=== PATIENT | female | born 1950 | race Caucasian/White ===

== ENCOUNTER 2018-09-29 06:59 | Outpatient (CLI) | payer MEDICARE, OTHER ==
--- NOTE | 2018-09-29 08:39 | ULT ---
HEPATIC SONOGRAM WITH DUPLEX EVALUATION: History: Abdominal liver function tests. FINDINGS: Gallbladder is surgically absent. The common duct is 0.8 cm. Liver is diffusely echogenic without foc al mass or intrahepatic biliary dilatation. No free fluid. Spleen is 10.3 cm. Good color and spectral doppler flow within the hepatic and splenic arteries. Portal venous flow is t owards the liver. Portal venous flow is towards to liver. Hepatic venous flow is towards the IVC. IMPRESSION: 1. Status post cholecystectomy. 2. Hepatosteatosis. 3. No sonographic evidence of portal venous hypertension. POS: [facility]
== END 2018-09-29 07:00 | disposition home or self-care (01) ==
LOC: SCSULT 06:59
PROVIDERS: ATTEND Internal Medicine Gastroenterology
DX: R89.0 Abnormal level of enzymes in specimens from other organs, systems and tissues (principal); K76.0 Fatty (change of) liver, not elsewhere classified; Z90.49 Acquired absence of other specified parts of digestive tract
CPT/HCPCS: 76705

== ENCOUNTER 2020-04-16 05:59 | Day surgery (SDC) | payer MEDICARE, OTHER ==
[2020-04-16] MEDS ORDERED: Heparin 5,000 UNITS/ML VIAL ONE (06:36)
[2020-04-16] MEDS ORDERED: Gentamicin 80 MG/2 ML VIAL ONE (06:37)
[2020-04-16] MEDS ORDERED: Sodium Chloride 0.9% 10 ML ONE ×2 (06:37→06:55)
[2020-04-16] MEDS ORDERED: Bupivacaine 0.25% HCL 30 ML VIAL ONE (06:42)
[2020-04-16] MEDS ORDERED: EPINEPHrine 1 MG/ML AMP ONE (06:42)
[2020-04-16] MEDS ORDERED: Fentanyl 250 MCG/5 ML VIAL ONE (06:47)
[2020-04-16] MEDS ORDERED: Levofloxacin 500 mg/D5W 100 ml Premix Bag ONE (07:29)
[2020-04-16] MEDS ORDERED: Clindamycin/D5W 900 mg/50 ml Premix Bag ONE (08:03)
--- NOTE | 2020-04-16 10:46 | OP ---
DATE OF PROCEDURE: 04/16/2020 PREOPERATIVE DIAGNOSES: 1. Breast cancer. 2. Deflated right breast implant. FINDINGS 1. 13cm smooth round [employer] with no fill on the left. PROCEDURES PERFORMED: 1. Bilateral replacement saline breast implants with silicone breast implants, [id number]. 2. Right capsulectomies, .RT. DESCRIPTION OF PROCEDURE: Following induction of adequate anesthesia, the patient was prepped and draped in usual sterile fashion in supine position. Attention was first turned to the left breast. The incision was made through the existing inframammary crease scar. Dissection was carried sharply down through the subcutaneous tissue to the muscle. The muscle was incised to reveal a total submuscular reconstruction. The implant was removed and weighed. It was filled with 700 mL of saline. A 755 mL [place] new implant was placed. The pocket was then closed with 2-0 PDS suture for the capsule and 3-0 Monocryl for the skin. Attention was turned to the right breast. A similar incision was made. Dissection was carried sharply down to the capsule. A deflated implant was removed. A very contracted pocket was encountered. An anterior capsulectomy for the upper 1/3 of the breast was performed to allow for adequate pocket expansion. The pocket was copiously irrigated as the left one had also been with hypochlorite solution followed by antibiotic solution and a combination of antibiotic Betadine solution. A Sizer was placed to determine what implant would give the best symmetry. An identical 755 mL [place] implant was chosen. The patient closure was then performed similarly. The patient tolerated the procedure well. Job ID: [id number] [facility]
[2020-04-16] MEDS ORDERED: Lidocaine 1% PF 5 ML VIAL ONE (11:38)
[2020-04-16] MEDS ORDERED: Rocuronium Bromide 10 MG/ML (10ML VIAL) ONE (11:38)
[2020-04-16] MEDS ORDERED: PROPOFOL 200 MG/20 ML VIAL ONE (11:38)
[2020-04-16] MEDS ORDERED: Ondansetron PF 4 MG/2 ML Vial ONE (11:38)
[2020-04-16] MEDS ORDERED: Glycopyrrolate 0.2 MG/ML 5 ML SYRINGE ONE (11:38)
[2020-04-16] MEDS ORDERED: Dexamethasone 20 MG/5 ML VIAL ONE (11:38)
[2020-04-16] MEDS ORDERED: EPHEDRINE 25 MG/5 ML SYRINGE ONE (11:38)
== END 2020-04-16 11:30 | disposition home or self-care (01) ==
LOC: SDC 05:59
PROVIDERS: ATTEND Plastic Surgery
PROC: 0HPU0JZ Removal of Synthetic Substitute from Left Breast, Open Approach (ICD-10-PCS; principal; 2020-04-16)
PROC: 0HPT0JZ Removal of Synthetic Substitute from Right Breast, Open Approach (ICD-10-PCS; 2020-04-16)
PROC: 0HRV0JZ Replacement of Bilateral Breast with Synthetic Substitute, Open Approach (ICD-10-PCS; 2020-04-16)
DX: T85.41XA Breakdown (mechanical) of breast prosthesis and implant, initial encounter (principal); N60.31 Fibrosclerosis of right breast; I10 Essential (primary) hypertension; E11.9 Type 2 diabetes mellitus without complications; M19.90 Unspecified osteoarthritis, unspecified site; E78.5 Hyperlipidemia, unspecified; E03.9 Hypothyroidism, unspecified; K21.9 Gastro-esophageal reflux disease without esophagitis; G47.33 Obstructive sleep apnea (adult) (pediatric); G89.29 Other chronic pain; M54.9 Dorsalgia, unspecified; E66.01 Morbid (severe) obesity due to excess calories; Z68.36 Body mass index [BMI] 36.0-36.9, adult; Z85.3 Personal history of malignant neoplasm of breast; Z79.82 Long term (current) use of aspirin; Z79.84 Long term (current) use of oral hypoglycemic drugs; Z79.899 Other long term (current) drug therapy; Z88.0 Allergy status to penicillin; Z88.1 Allergy status to other antibiotic agents; Z88.5 Allergy status to narcotic agent; Z91.013 Allergy to seafood; Z91.041 Radiographic dye allergy status
CPT/HCPCS: 88304; J0171; J1580; J1644; J1956; J3010; J3370; J3490; S0020